=== PATIENT | male | born 1990 | race Caucasian/White ===

== ENCOUNTER 2021-07-26 12:40 | Emergency (ER) | payer OTHER ==
[2021-07-26] MEDS ORDERED: IBUPROFEN800 MG PO (16:40)
[2021-07-26] MEDS ORDERED: CEPHALEXIN250 MG PO (16:40)
== END 2021-07-26 17:09 | disposition home or self-care (01) ==
LOC: FER 12:40
DX: S02.40DA Maxillary fracture, left side, initial encounter for closed fracture (principal); S01.511A Laceration without foreign body of lip, initial encounter; F17.210 Nicotine dependence, cigarettes, uncomplicated; W19.XXXA Unspecified fall, initial encounter; W22.09XA Striking against other stationary object, initial encounter; Y92.009 Unspecified place in unspecified non-institutional (private) residence as the place of occurrence of the external cause
CPT/HCPCS: 70486

== ENCOUNTER 2021-08-12 07:12 | Emergency (ER) | payer OTHER ==
[~2021-08-12 07:12] MED LIST: CEPHALEXIN250 MG PO; IBUPROFEN800 MG PO
== END 2021-08-12 07:26 | disposition home or self-care (01) ==
LOC: FER 07:12
DX: S01.81XD Laceration without foreign body of other part of head, subsequent encounter (principal); Z28.310 Unvaccinated for COVID-19
CPT/HCPCS: 99281